=== PATIENT | male | born 2000 | race Caucasian/White ===

== ENCOUNTER 2020-05-28 16:14 | Emergency (ER) | payer BC, OTHER ==
[2020-05-28 16:25] VITALS: BP 129/81; PULSE 92; RESP 18; TEMP 99.1
[2020-05-28] MEDS ORDERED: SODIUM CHLORIDE 0.9% 500 ML 500 ML IV STA (16:54)
[2020-05-28 17:35] LABS: ALT 32 U/L (4-49); AST 33 U/L (17-59); African American GFR (CKD) >90 (>60 ml/min/1.73 sqM); Albumin 4.8 g/dL (3.5-5.0); Alkaline Phosphatase 84 U/L (38-126); Anion Gap 10 mmol/L; Blood Urea Nitrogen 17 mg/dL (9-20); Calcium 9.8 mg/dL (8.4-10.2); Carbon Dioxide 23 mmol/L (22-30); Chloride 104 mmol/L (98-107); Glucose 96 mg/dL (74-99); Non-African American GFR(CKD) >90 (>60 ml/min/1.73 sqM); Potassium 4.2 mmol/L (3.5-5.1); Sodium 137 mmol/L (137-145); Total Bilirubin 0.7 mg/dL (0.2-1.3); Total Protein 7.5 g/dL (6.3-8.2)
--- NOTE | 2020-05-28 17:37 | US ---
EXAMINATION TYPE: US abdomen APPY DATE OF EXAM: 05/28/2020 COMPARISON: NONE CLINICAL HISTORY: RLQ pain . pain 2 hours ago in RLQ, in fever, no labs values at time of exam APPENDIX AP Diameter (normal < 6mm): 5-6mm mm Measured outer wall to outer wall. Is the appendix seen in its entirety from the proximal cecum to distal end: no Does the appendix wall appear hypervascular: no Is an appendicolith present: no Is there inflammatory changes or free fluid present: no Tubular structure seen within RLQ, that could represent appendix, appears wnl No other obvious abnormality seen. IMPRESSION: Appendix appears to be visualized and appears normal. No free fluid. No solid or cystic mass.
[2020-05-28 17:50] LABS: Appearance,Urine Clear (Clear); Bilirubin,Urine Negative (Negative); Blood,Urine Negative (Negative); Color,Urine Yellow; Glucose,Urine (UA) Negative (Negative); Ketones,Urine 2+ (Negative); Leukocyte Esterase,Urine Negative (Negative); Nitrite,Urine Negative (Negative); PH, Urine 5.5 (5.0-8.0); Protein,Urine Trace (Negative); Specific Gravity,Urine 1.034 (1.001-1.035)
[2020-05-28 18:30] LABS: Basophils # (A) 0.1 k/uL (0-0.2); Basophils % (A) 0 %; Eosinophils # (A) 0.3 k/uL (0-0.7); Eosinophils % (A) 2 %; HCT 48.5 % (39.0-53.0); HGB 16.2 gm/dL (13.0-17.5); Lymphocytes # (A) 1.5 k/uL (1.0-4.8); Lymphocytes % (A) 8 %; MCHC 33.5 g/dL (31.0-37.0); MCV 89.6 fL (80.0-100.0); Monocytes % (A) 5 %; Neutrophils # (A) 15.6 k/uL (1.3-7.7); Neutrophils % (A) 84 %; Platelet Count 187 k/uL (150-450); RBC 5.41 m/uL (4.30-5.90); WBC 18.6 k/uL (4.0-11.0)
--- NOTE | 2020-05-28 19:11 | ED ---
General Adult HPI - General Chief complaint: Abdominal Pain Stated complaint: poss appendicitis Time Seen by Provider: 05/28/20 16:29 Source: patient, family, RN notes reviewed, old records reviewed Mode of arrival: ambulatory Limitations: no limitations - History of Present Illness Initial comments: 19-year-old male patient was ED for chief complaint right lower quadrant abdominal pain. Patient reports that this pain started approximately 3 hours ago. States that it is somewhat sharp in nature. 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 He denies any nausea or vomiting. Denies any fevers. Denies any other complaints. Systemic: Pt denies fatigue, fever/chills, rash. Pt denies weakness, night sweats, weight loss. Neuro: Pt denies headache, visual disturbances, syncope or pre-syncope. HEENT: Pt denies ocular discharge or irritation, otalgia, rhinorrhea, pharyngitis or notable lymphadenopathy. Cardiopulmonary: Pt denies chest pain, SOB, heart palpitations, dyspnea on exertion. Abdominal/GI: Pt denies n/v/d. : Pt denies dysuria, burning w/ urination, frequency/urgency. Denies new onset urinary or bowel incontinence. MSK: Pt denies myalgia, loss of strength or function in extremities. Neuro: Pt denies new onset weakness, paresthesias. - Related Data Home Medications Medication Instructions Recorded Confirmed No Known Home Medications 05/28/20 05/28/20 Allergies Allergy/AdvReac Type Severity Reaction Status Date / Time No Known Allergies Allergy Verified 05/28/20 18:19 Review of Systems ROS Statement: Those systems with pertinent positive or pertinent negative responses have been documented in the HPI. ROS Other: All systems not noted in ROS Statement are negative. Past Medical History Past Medical History: No Reported History History of Any Multi-Drug Resistant Organisms: None Reported Past Surgical History: No Surgical Hx Reported Past Psychological History: No Psychological Hx Reported Smoking Status: Never smoker Past Alcohol Use History: None Reported Past Drug Use History: None Reported General Exam - General Exam Comments Initial Comments: Constitutional: NAD, AOX3, Pt has pleasant affect. HEENT: NC/AT, trachea midline, neck supple, no lymphadenopathy. External ears appear normal, without discharge. Mucous membranes moist. Eyes PERRLA, EOM intact. There is no scleral icterus. No pallor noted. Cardiopulmonary: RRR, no murmurs, rubs or gallops, no JVD noted. Lungs CTAB in anterior and posterior larios. No peripheral edema. Abdominal exam: Abdomen soft and non-distended. Abdomen mildly tender to palpation right lower quadrant region. Psoas sign, heel tap, rosvings sign all negative. No hepatosplenomegaly. No ecchymosis Neuro: CN II-XII grossly intact. No nuchal rigidity. No raccon eyes, no cronin sign, MSK: Full active ROM in upper and lower extremities Limitations: no limitations Course Vital Signs 05/28/20 16:23 Temperature 99.1 F Pulse Rate 92 Respiratory 18 Rate Blood Pressure 129/81 O2 Sat by Pulse 100 Oximetry Medical Decision Making - Medical Decision Making 19-year-old male patient was ED for chief complaint right lower quadrant abdominal pain. Patient reports that this pain started approximately 3 hours ago. States that it is somewhat sharp in nature. 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 He denies any nausea or vomiting. Denies any fevers. Denies any other complaints. Patient vital signs are stable, afebrile. Physical exam is fully mild muscle tenderness right lower quadrant region. Ultrasound of right lower quadrant displayed an appendix that appears to be visualized appears normal. No free fluid. No solid cystic mass. Laboratory investigations displayed a white blood cell count of 18.6, 2+ ketones in the urine. I reevaluation patient, he reports that his pain is feeling improved without any intervention. Repeat physical ex am shows displayed decreased tenderness in right lower quadrant region. Shared decision making with patient and mother. I did offer a CT the abdomen and pelvis to them. I explained to them that the laboratory investigations do show an increased white blood cell count. However the ultrasound did not display any signs of acute appendicitis. Patient reports that he would prefer to go home and monitor her symptoms and that he'll return to the ER if his pain gets worse or does not improve. Otherwise follow-up with primary care provider tomorrow. Case discussed with Dr. Drew. - Lab Data Result diagrams: 05/28/20 18:18 05/28/20 17:11 Lab Results 05/28/20 05/28/20 05/28/20 Range/Units 17:11 17:11 17:37 WBC (4.0-11.0) k/uL RBC (4.30-5.90) m/uL Hgb (13.0-17.5) gm/dL Hct (39.0-53.0) % MCV (80.0-100.0) fL MCH (25.0-35.0) pg MCHC (31.0-37.0) g/dL RDW (11.5-15.5) % Plt Count (150-450) k/uL Neutrophils % % Lymphocytes % % Monocytes % % Eosinophils % % Basophils % % Neutrophils # (1.3-7.7) k/uL Lymphocytes # (1.0-4.8) k/uL Monocytes # (0-1.0) k/uL Eosinophils # (0-0.7) k/uL Basophils # (0-0.2) k/uL Sodium 137 (137-145) mmol/L Potassium 4.2 (3.5-5.1) mmol/L Chloride 104 (98-107) mmol/L Carbon Dioxide 23 (22-30) mmol/L Anion Gap 10 mmol/L BUN 17 (9-20) mg/dL Creatinine 1.13 (0.66-1.25) mg/dL Est GFR (CKD-EPI)AfAm >90 (>60 ml/min/1.73 sqM) Est GFR (CKD-EPI)NonAf >90 (>60 ml/min/1.73 sqM) Glucose 96 (74-99) mg/dL Plasma Lactic Acid Mehdi 0.9 (0.7-2.0) mmol/L Calcium 9.8 (8.4-10.2) mg/dL Total Bilirubin 0.7 (0.2-1.3) mg/dL AST 33 (17-59) U/L ALT 32 (4-49) U/L Alkaline Phosphatase 84 (38-126) U/L Total Protein 7.5 (6.3-8.2) g/dL Albumin 4.8 (3.5-5.0) g/dL Lipase 97 (23-300) U/L Urine Color Yellow Urine Appearance Clear (Clear) Urine pH 5.5 (5.0-8.0) Ur Specific [place] 1.034 (1.001-1.035) Urine Protein Trace H (Negative) Urine Glucose (UA) Negative (Negative) Urine Ketones 2+ H (Negative) Urine Blood Negative (Negative) Urine Nitrite Negative (Negative) Urine Bilirubin Negative (Negative) Urine Urobilinogen 2.0 (<2.0) mg/dL Ur Leukocyte Esterase Negative (Negative) 05/28/20 Range/Units 18:18 WBC 18.6 H (4.0-11.0) k/uL RBC 5.41 (4.30-5.90) m/uL Hgb 16.2 (13.0-17.5) gm/dL Hct 48.5 (39.0-53.0) % MCV 89.6 (80.0-100.0) fL MCH 30.0 (25.0-35.0) pg MCHC 33.5 (31.0-37.0) g/dL RDW 13.0 (11.5-15.5) % Plt Count 187 (150-450) k/uL Neutrophils % 84 % Lymphocytes % 8 % Monocytes % 5 % Eosinophils % 2 % Basophils % 0 % Neutrophils # 15.6 H (1.3-7.7) k/uL Lymphocytes # 1.5 (1.0-4.8) k/uL Monocytes # 1.0 (0-1.0) k/uL Eosinophils # 0.3 (0-0.7) k/uL Basophils # 0.1 (0-0.2) k/uL Sodium (137-145) mmol/L Potassium (3.5-5.1) mmol/L Chloride (98-107) mmol/L Carbon Dioxide (22-30) mmol/L Anion Gap mmol/L BUN (9-20) mg/dL Creatinine (0.66-1.25) mg/dL Est GFR (CKD-EPI)AfAm (>60 ml/min/1.73 sqM) Est GFR (CKD-EPI)NonAf (>60 ml/min/1.73 sqM) Glucose (74-99) mg/dL Plasma Lactic Acid Mehdi (0.7-2.0) mmol/L Calcium (8.4-10.2) mg/dL Total Bilirubin (0.2-1.3) mg/dL AST (17-59) U/L ALT (4-49) U/L Alkaline Phosphatase (38-126) U/L Total Protein (6.3-8.2) g/dL Albumin (3.5-5.0) g/dL Lipase (23-300) U/L Urine Color Urine Appearance (Clear) Urine pH (5.0-8.0) Ur Specific [place] (1.001-1.035) Urine Protein (Negative) Urine Glucose (UA) (Negative) Urine Ketones (Negative) Urine Blood (Negative) Urine Nitrite (Negative) Urine Bilirubin (Negative) Urine Urobilinogen (<2.0) mg/dL Ur Leukocyte Esterase (Negative) Disposition Clinical Impression: Abdominal pain Disposition: HOME SELF-CARE Condition: Stable Instructions (If sedation given, give patient instructions): Abdominal Pain (ED) Additional Instructions: Follow-up with primary care provider tomorrow. Continue to drink lots of fluids. If pain returns or gets worse return to emergency department for a CT of the abdomen the pelvis. Is patient prescribed a controlled substance at d/c from ED?: No Referrals: Stanislaw Aguila DO [Primary Care Provider] - 1-2 days
== END 2020-05-28 19:25 | disposition home or self-care (01) ==
LOC: EC 16:14
DX: R10.31 Right lower quadrant pain (principal)
CPT/HCPCS: 36415; 76705; 80053; 81003; 83605; 83690; 85025; 96360; 96361; 99284